=== PATIENT | female | born 1960 | race Caucasian/White ===

== ENCOUNTER 2018-02-01 16:26 | Emergency (ER) | payer BC ==
[2018-02-01] MEDS ORDERED: Bacitracin/Neomycin/Polymyxin B Oint 0.9 GM U/D Packet TOP ONE (16:52)
[2018-02-01] MEDS ORDERED: Diphtheria,Pertussis(Acell),Tetanus Vaccine 0.5 ML SDV IM ONE (16:52)
--- NOTE | 2018-02-01 17:39 | EDM.PDOC ---
ED HPI GENERAL MEDICAL PROBLEM - General Chief Complaint: Laceration Stated Complaint: finger laceration Time Seen by Provider: 02/01/18 16:55 Source of Information: Reports: Patient History Limitations: Reports: No Limitations - History of Present Illness INITIAL COMMENTS - FREE TEXT/NARRATIVE: Patient sustained laceration of left index finger on sharp edge of yard tool as she tried to catch it as it fell. No loss of function. Applied pressure to wound immediately. Needs tetanus update. No other injuries reported. No numbness /tingling of affected finger. Left Hand Pain Score (Numeric/FACES): 4 - Related Data Allergies Allergy/AdvReac Type Severity Reaction Status Date / Time No Known Allergies Allergy Verified 02/01/18 16:30 Home Meds: Home Meds Simvastatin 10 mg PO DAILY 02/01/18 [History] Past Medical History Oncologic (Cancer) History: Reports: Breast - Infectious Disease History Infectious Disease History: Reports: Chicken Pox - Past Surgical History Oncologic Surgical History: Reports: Mastectomy Social & Family History - Tobacco Use Smoking Status *Q: Never Smoker - Caffeine Use Caffeine Use: Reports: Coffee, Soda - Recreational Drug Use Recreational Drug Use: No ED ROS GENERAL - Review of Systems Review Of Systems: ROS reveals no pertinent complaints other than HPI. ED EXAM, SKIN/RASH Exam: See Below Exam Limited By: No Limitations General Appearance: Alert, WD/WN, No Apparent Distress Head: Atraumatic, Normocephalic Neck: Supple Respiratory/Chest: No Respiratory Distress Extremities: Other (Left hand/fingers have full ROM. NVI. Tendon function intact. 1.5cm laceration distal portion left index finger, 5mm deep) Neurological: Alert, Oriented, Normal Cognition, Normal Gait, No Motor/Sensory Deficits Psychiatric: Normal Affect, Normal Mood Skin: Warm, Dry ED SKIN PROCEDURES - Laceration/Wound Repair Left Digit - 2nd (Index) Lac/Wound length In cm: 1.5 Appearance: Subcutaneous, Linear, Clean Distal NVT: Neuro & Vascular Intact, No Tendon Injury Anesthetic Type: Digital Local Anesthesia - Lidocaine (Xylocaine): 1% Plain Local Anesthetic Volume: 5cc Skin Prep: Providone-Iodine (Betadine) Exploration/Debridement/Repair: Wound Explored, Explored to Base, No Foreign Material Found Closed with: Sutures Suture Size: 4-0 # of Sutures: 4 Suture Type: Nylon, Interrupted Sterile Dressing Applied: Nurse Tetanus Status Addressed: Yes Complications: No Course - Vital Signs Last Recorded V/S: Last Vital Signs Temp 37.2 C 02/01/18 16:26 Pulse 93 02/01/18 16:26 Resp 20 02/01/18 16:26 BP 122/80 02/01/18 16:26 Pulse Ox 100 02/01/18 16:26 - Orders/Labs/Meds Orders: Active Orders 24 hr Category Date Time Status Vaccines to be Administered [RC] PER UNIT ROUTINE Care 02/01/18 16:52 Active Meds: Medications Discontinued Medications Generic Name Dose Route Start Last Admin Trade Name Freq PRN Reason Stop Dose Admin Diphtheria/Tetanus/Acell Pertussis 0.5 ml 02/01/18 16:52 02/01/18 16:54 Adacel IM 02/01/18 16:53 0.5 ml .ONCE ONE Administration Lidocaine HCl 10 ml 02/01/18 16:52 02/01/18 17:32 Xylocaine-Mpf 1% INJECT 02/01/18 16:53 5 ml ONETIME ONE Administration Neomycin/Polymyxin/Bacitracin 1 each 02/01/18 16:52 02/01/18 17:32 Triple Antibiotic Oint TOP 02/01/18 16:53 1 each ONETIME ONE Administration - Re-Assessments/Exams Free Text/Narrative Re-Assessment/Exam: 02/01/18 17:44 Laceration repaired. Tetanus updated. Wound care reviewed prior to discharge. Departure - Departure Time of Disposition: 17:38 Disposition: Home, Self-Care 01 Condition: Good Clinical Impression: Laceration of left index finger Qualifiers: Encounter type: initial encounter Damage to nail status: without damage Foreign body presence: without foreign body Qualified Code(s): S61.211A - Laceration without foreign body of left index finger without damage to nail, initial encounter - Discharge Information *PRESCRIPTION DRUG MONITORING PROGRAM REVIEWED*: Not Applicable *COPY OF PRESCRIPTION DRUG MONITORING REPORT IN PATIENT ZAIRA: Not Applicable Instructions: Sutured Wound Care, [id number] Referrals: Jj Jimenez MD [Primary Care Provider] - Forms: ED Department Discharge Additional Instructions: Wound care as discussed. Watch for infection. Follow up as needed if there are problems. Sutures out next Friday. - My Orders Last 24 Hours: My Active Orders 02/01/18 16:52 Vaccines to be Administered [RC] PER UNIT ROUTINE - Assessment/Plan Last 24 Hours: My Active Orders 02/01/18 16:52 Vaccines to be Administered [RC] PER UNIT ROUTINE
== END 2018-02-01 17:45 | disposition home or self-care (01) ==
LOC: LL.ED 16:26
DX: S61.211A Laceration without foreign body of left index finger without damage to nail, initial encounter (principal); Z23 Encounter for immunization; W22.8XXA Striking against or struck by other objects, initial encounter
CPT/HCPCS: 12001; 90471; 90715; 96372; 99283